=== PATIENT | female | born 1945 | race Caucasian/White ===

== ENCOUNTER → 2018-02-09 | Outpatient (CLI) | payer MEDICARE | END | disposition home or self-care (01) | LOC: RAH 12:06 | PROVIDERS: ATTEND Family Medicine | DX: Z12.31 Encounter for screening mammogram for malignant neoplasm of breast (principal) | CPT/HCPCS: 77067 ==

== ENCOUNTER → 2019-02-10 | Outpatient (CLI) | payer MEDICARE | END | disposition home or self-care (01) | LOC: RAH 12:38 | PROVIDERS: ATTEND Family Medicine | DX: Z12.31 Encounter for screening mammogram for malignant neoplasm of breast (principal) | CPT/HCPCS: 77067 ==

== ENCOUNTER → 2020-03-06 | Outpatient (CLI) | payer MEDICARE | END | disposition home or self-care (01) | LOC: RAH 09:28 | PROVIDERS: ATTEND Family Medicine | DX: Z12.31 Encounter for screening mammogram for malignant neoplasm of breast (principal) | CPT/HCPCS: 77067 ==

== ENCOUNTER → 2022-04-16 | Outpatient (CLI) | payer MEDICARE | END | disposition home or self-care (01) | LOC: RAH 09:55 | PROVIDERS: ATTEND Physician Assistant Medical | DX: Z12.31 Encounter for screening mammogram for malignant neoplasm of breast (principal) | CPT/HCPCS: 77067 ==

== ENCOUNTER → 2023-01-29 | Outpatient (CLI) | payer MEDICARE ==
[~2023-01-29] MED LIST: APIX5TAB PO; EZET10TA13 PO; FURO20TA4 PO; LEVO750T39 PO; METO-409 PO; POTA-187 PO
[2023-01-29 12:11] LABS: BASOPHILS # (AUTO) 0.07 K/uL (0.00-0.20); BASOPHILS % (AUTO) 1.1 % (0.0-5.0); EOSINOPHILS # (AUTO) 0.15 K/uL (0.00-0.70); EOSINOPHILS % (AUTO) 2.3 % (0.0-8.0); HEMATOCRIT 45.7 % (36-48); IMMATURE GRANULOCYTE ABSOLUTE 0.02 K/uL (0-1); LYMPHOCYTES # (AUTO) 3.1 K/uL (1.0-4.8); LYMPHOCYTES % (AUTO) 46.2 % (21.0-51.0); MEAN CORPUSCULAR HEMOGLOBIN 29.3 pg (27.0-33.0); MEAN CORPUSCULAR HGB CONC 31.1 g/dL (32.0-36.0); MEAN CORPUSCULAR VOLUME 94.2 fL (79-99); MONOCYTES # (AUTO) 0.6 K/uL (0.1-1.0); MONOCYTES % (AUTO) 9.2 % (3.0-13.0); NEUTROPHILS # (AUTO) 2.7 K/uL (1.8-7.7); NEUTROPHILS % (AUTO) 40.9 % (40.0-77.0); PLATELET COUNT (AUTO) 222 K/uL (130-400); RED BLOOD CELL COUNT(AUTO) 4.85 MIL/uL (4.00-5.50); RED CELL DISTRIBUTION WIDTH 13.3 % (11.0-15.5); WHITE BLOOD COUNT (AUTO) 6.7 K/uL (4.8-10.8)
[2023-01-29 12:22] LABS: ALBUMIN 3.8 g/dL (3.5-5.0); BILIRUBIN,TOTAL 0.6 mg/dL (0.2-1.0); MAGNESIUM 2.7 mg/dL (1.80-2.40); TOTAL PROTEIN, SERUM 7.8 g/dL (6.0-8.3)
== END | disposition home or self-care (01) ==
LOC: LAB 08:37
PROVIDERS: ATTEND Internal Medicine Cardiovascular Disease
DX: I48.0 Paroxysmal atrial fibrillation (principal); D68.69 Other thrombophilia; Z79.899 Other long term (current) drug therapy
CPT/HCPCS: 36415; 80053; 80061; 83735; 83880; 85025

== ENCOUNTER → 2023-04-30 | Outpatient (CLI) | payer MEDICARE ==
[~2023-04-30] MED LIST changes: -EZET10TA13 PO; +EZET10TA81 PO
== END | disposition home or self-care (01) ==
LOC: RAH 09:57
PROVIDERS: ATTEND Physician Assistant Medical
DX: Z12.31 Encounter for screening mammogram for malignant neoplasm of breast (principal)
CPT/HCPCS: 77067

== ENCOUNTER 2024-02-27 05:48 | Day surgery (SDC) | payer MEDICARE ==
[2024-02-25 14:27] LABS: BASOPHILS # (AUTO) 0.06 K/uL (0.00-0.20); BASOPHILS % (AUTO) 0.9 % (0.0-5.0); EOSINOPHILS # (AUTO) 0.15 K/uL (0.00-0.70); EOSINOPHILS % (AUTO) 2.1 % (0.0-8.0); HEMATOCRIT 40.6 % (36-48); IMMATURE GRANULOCYTE ABSOLUTE 0.02 K/uL (0-1); LYMPHOCYTES # (AUTO) 2.5 K/uL (1.0-4.8); LYMPHOCYTES % (AUTO) 35.2 % (21.0-51.0); MEAN CORPUSCULAR HEMOGLOBIN 29.5 pg (27.0-33.0); MEAN CORPUSCULAR VOLUME 92.1 fL (79-99); MONOCYTES # (AUTO) 0.7 K/uL (0.1-1.0); MONOCYTES % (AUTO) 9.6 % (3.0-13.0); NEUTROPHILS # (AUTO) 3.6 K/uL (1.8-7.7); NEUTROPHILS % (AUTO) 51.9 % (40.0-77.0); PLATELET COUNT (AUTO) 260 K/uL (130-400); RED BLOOD CELL COUNT(AUTO) 4.41 MIL/uL (4.00-5.50); RED CELL DISTRIBUTION WIDTH 14.3 % (11.0-15.5)
[2024-02-25 14:43] LABS: INR 1.02 (0.85-1.15)
[2024-02-25 14:44] LABS: CREATININE 1.3 mg/dL (0.5-1.0); PARTIAL THROMBOPLASTIN TIME 28.6 SEC (26.3-35.5); POTASSIUM 4.7 mmol/L (3.5-5.1)
[2024-02-25 14:54] VITALS: BP 137/67; PULSE 71; RESP 16; TEMP 98.2
[~2024-02-27] VITALS: Ht 167.6 cm; Wt 79.7 kg
[~2024-02-27 05:48] MED LIST changes: +DRON400T7 PO; -FURO20TA4 PO; -LEVO750T39 PO; +LOSA50TA64 PO; +METO-408 PO; -METO-409 PO; -POTA-187 PO
== END 2024-02-27 06:55 | disposition home or self-care (01) ==
LOC: DAH 05:48
PROVIDERS: ATTEND Internal Medicine Cardiovascular Disease
DX: I48.91 Unspecified atrial fibrillation (principal); E78.5 Hyperlipidemia, unspecified; D68.59 Other primary thrombophilia; R53.83 Other fatigue; Z96.642 Presence of left artificial hip joint; I10 Essential (primary) hypertension; Z90.49 Acquired absence of other specified parts of digestive tract; Z90.89 Acquired absence of other organs; Z79.01 Long term (current) use of anticoagulants; Z79.899 Other long term (current) drug therapy; Z53.8 Procedure and treatment not carried out for other reasons
CPT/HCPCS: 36415; 80048; 85025; 85610; 85730; 93005

== ENCOUNTER → 2024-03-29 | Outpatient (CLI) | payer MEDICARE ==
[2024-03-29 09:49] LABS: ALBUMIN 3.5 g/dL (3.5-5.0); BILIRUBIN,TOTAL 0.6 mg/dL (0.2-1.0); POTASSIUM 4.3 mmol/L (3.5-5.1); TOTAL PROTEIN, SERUM 7.2 g/dL (6.0-8.3)
== END | disposition home or self-care (01) ==
LOC: LAB 08:53
PROVIDERS: ATTEND Internal Medicine Cardiovascular Disease
DX: R53.83 Other fatigue (principal); R06.00 Dyspnea, unspecified
CPT/HCPCS: 36415; 80053

== ENCOUNTER → 2024-04-02 | Outpatient (CLI) | payer MEDICARE ==
[~2024-04-02] MED LIST changes: +IOHEXOL 350 MG/ML 100ML INFUS..BTL IV ONE
--- NOTE | 2024-04-02 13:32 | HMCIMG ---
CT CARDIAC ANGIO W/CONT. CCTA HISTORY: Dyspnea COMPARISON: None TECHNIQUE: Multiple sequential axial images of the chest were obtained along with the CT angiogram of the chest study. Patient was given 100 cc of Omnipaque through intravenous route. FINDINGS: There is no evidence of pulmonary nodule or parenchymal disease. No pleural effusion or pericardial effusion is seen. There is no evidence of pneumothorax. There are normal size mediastinal and hilar lymph nodes. The heart is not enlarged. Degenerative changes of the thoracolumbar spine are present. IMPRESSION: 1. No evidence of pulmonary nodule or effusion is seen. Please see CT angiogram report of coronary arteries.
== END | disposition home or self-care (01) ==
LOC: RAH 08:40
PROVIDERS: ATTEND Internal Medicine Cardiovascular Disease
DX: R06.00 Dyspnea, unspecified (principal); R53.83 Other fatigue; M47.815 Spondylosis without myelopathy or radiculopathy, thoracolumbar region
CPT/HCPCS: 75574; Q9967

== ENCOUNTER → 2024-06-01 | Outpatient (CLI) | payer MEDICARE ==
[~2024-06-01] MED LIST changes: -IOHEXOL 350 MG/ML 100ML INFUS..BTL IV ONE
--- NOTE | 2024-06-01 10:30 | HMCIMG ---
MAMMO SCREENING BILATERAL HISTORY: Screening mammogram. COMPARISON: 06/01/2024 TECHNIQUE: Bilateral screening mammogram with CAD was performed with craniocaudal and mediolateral oblique projections. FINDINGS: There are scattered areas of fibroglandular density. There is no evidence of a dominant mass, or suspicious microcalcification. There is no evidence of nipple retraction or skin thickening. IMPRESSION: 1. Stable mammogram. Patient was entered into a reminder system with a target due date for their next mammogram. BI-RADS: CATEGORY 2: BENIGN FINDINGS Recommend monthly self breast exam as well as annual clinical examination. A negative x-ray should not delay biopsy if a dominant or clinically suspicious mass is present, since 8-10% of cancers are not identified by mammography. Dense breasts particularly, may obscure an underlying neoplasm. Some of these may be detected clinically and therefore, clinical examination is an essential part of breast evaluation.
== END | disposition home or self-care (01) ==
LOC: RAH 09:10
PROVIDERS: ATTEND Physician Assistant Medical
DX: Z12.31 Encounter for screening mammogram for malignant neoplasm of breast (principal); R92.323 Mammographic fibroglandular density, bilateral breasts
CPT/HCPCS: 77067

== ENCOUNTER 2025-01-20 07:24 | Day surgery (SDC) | payer MEDICARE ==
[2025-01-18 10:40] LABS: IMMATURE GRANULOCYTE ABSOLUTE 0.02 K/uL (0-1); NUCLEATED RED BLOOD CELLS 0.0 % (0.0-0.19); PLATELET COUNT (AUTO) 228 K/uL (130-400); RED BLOOD CELL COUNT(AUTO) 4.42 MIL/uL (4.00-5.50); RED CELL DISTRIBUTION WIDTH 13.9 % (11.0-15.5); WHITE BLOOD COUNT (AUTO) 8.0 K/uL (4.8-10.8)
[2025-01-18 10:49] LABS: CREATININE 1.0 mg/dL (0.5-1.0); GLOMERULAR FILTR. RATE CALC 57.0 mL/min (>90); GLUCOSE,RANDOM 101.0 mg/dL (70-105); SODIUM SERUM 139.0 mmol/L (136-145); UREA NITROGEN, BLOOD 18.0 mg/dL (7-18)
[2025-01-18 10:52] LABS: INR 1.15 (0.85-1.15)
[2025-01-18 11:29] VITALS: BP 133/63; PULSE 76; RESP 14; TEMP 97.4
--- NOTE | 2025-01-19 13:49 | NUR ---
RE: LABS REPORTED POTASSIUM 5.[address] NAVA, NO NEW ORDERS RECEIVED.
[~2025-01-20] VITALS: Ht 167.6 cm; Wt 79.4 kg
[2025-01-20] VITALS (7 sets, daily range): BP systolic 128–165; BP diastolic 65–77; PULSE 65–92; RESP 14–17; TEMP 97–97.8
[~2025-01-20 07:24] MED LIST changes: +ATOR40TA71 PO; -LOSA50TA64 PO; -METO-408 PO
[2025-01-20] MEDS ORDERED: MIDAZOLAM HCL 1 MG/ML 2ML VIAL IVP ONE (08:30)
--- NOTE | 2025-01-20 08:46 | NUR ---
PT SYNCHRONIZED CARDIOVERTED [address] TAYLOR. PT REMAINS IN ATRIAL FIBRILLATION.
--- NOTE | 2025-01-20 08:47 | NUR ---
PT SYNCHRONIZED CARDIOVERTED 2ND TIME 200 JOULES TOLERATED WELL, NO CHANGE IN HEART RHYTHM PT REMAINS IN ATRIAL FIBRILLATION.
--- NOTE | 2025-01-20 08:49 | NUR ---
PT SYNCHRONIZED CARDIOVERTED A 3RD TIME AT 200 JOULES PT TOLERATED WELL NAD VSS PT CONTINUES TO REMAIN IN ATRIAL FIBRILLATION.
--- NOTE | 2025-01-20 08:51 | NUR ---
DR. TAYLOR SPEAKING WITH SPOUSE ABOUT OTHER TREATMENT OPTIONS AND FOLLOW UP APPOINTMENT FOR ATRIAL FIB. PT AWAKE SPEAKING WITH STAFF
--- NOTE | 2025-01-20 09:02 | PRN ---
CARDIOVERSION WITH CONSCIOUS SEDATION INDICATION: ATRIAL FIBRILLATION TECHNIQUE: Patient was brought to the holding area in a fasting state after informed consent, and AP paddles were applied. Patient was sedated with 2 mg Versed and 100 mcg fentanyl given in divided doses, and she was then cardioverted with a 120 joules biphasic. Distal was unsuccessful, so two additional attempts were made at 200 joules biphasic current. These were also unsuccessful. Patient was recovered without complication. Conclusions: Tolerated conscious sedation, unsuccessful cardioversion attempt. PATTIE TAYLOR MD Jan 20, 2025 09:02
[2025-01-20] MEDS: MIDAZOLAM HCL 1 MG/ML 2ML VIAL IVP ONE (09:17)
--- NOTE | 2025-01-20 09:55 | NUR ---
BOTH PT AND SPOUSE GIVEN VERBAL AND WRITTEN DISCHARGE INSTRUCTIONS. IV REMOVED SITE ASYMPTOMATIC. PT TAKEN OUT VIA WHEELCHAIR. SPOUSE DRIVING.
--- NOTE | 2025-01-20 10:05 | EKG ---
[facility] Test Date: 2025-01-20 Test Time: 07:33:31 Pat Name: MICAELA TILLEY Department: [facility] Room: [facility] 11 Gender: F Heel Splitter: [id number] : 1945 Requested By: PATTIE TAYLOR Order Number: [id number] Reading MD: Ant Carranza Measurements Intervals [place] Rate: 79 P: 0 NH: 0 QRS: 23 QRSD: 88 T: 36 QT: 395 QTc: 454 Interpretive Statements Atrial fibrillation Compared to ECG 02/27/2024 06:17:37 Sinus bradycardia no longer present Electronically Signed On 01-20-2025 13:39:58 CDT by Ant Carranza Please click the below link to view image of tracing.
== END 2025-01-20 10:00 | disposition home or self-care (01) ==
LOC: DAH 07:24
PROVIDERS: ATTEND Internal Medicine Cardiovascular Disease
DX: I48.91 Unspecified atrial fibrillation (principal); I25.10 Atherosclerotic heart disease of native coronary artery without angina pectoris; E78.5 Hyperlipidemia, unspecified; I34.0 Nonrheumatic mitral (valve) insufficiency; Z90.49 Acquired absence of other specified parts of digestive tract; Z82.49 Family history of ischemic heart disease and other diseases of the circulatory system; Z79.899 Other long term (current) drug therapy; Z98.890 Other specified postprocedural states
CPT/HCPCS: 80048; 85025; 85610; 85730; 36415; 93005; 99152; 92960; A4223 ×3; J3010; J2250; A4615; A4215; A4657; A4222; A4221; A4663; A4216; A4606; G0500

== ENCOUNTER 2025-03-29 05:52 | Observation (INO) | payer MEDICARE ==
[2025-03-25 10:46] LABS: IMMATURE GRANULOCYTE ABSOLUTE 0.02 K/uL (0-1); NUCLEATED RED BLOOD CELLS 0.0 % (0.0-0.19); PLATELET COUNT (AUTO) 214 K/uL (130-400); RED BLOOD CELL COUNT(AUTO) 4.71 MIL/uL (4.00-5.50); RED CELL DISTRIBUTION WIDTH 13.0 % (11.0-15.5); WHITE BLOOD COUNT (AUTO) 8.4 K/uL (4.8-10.8)
--- NOTE | 2025-03-25 10:54 | EKG ---
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
[2025-03-25 10:55] LABS: CREATININE 1.0 mg/dL (0.5-1.0); GLOMERULAR FILTR. RATE CALC 57.0 mL/min (>90); GLUCOSE,RANDOM 93.0 mg/dL (70-105); INR 1.19 (0.85-1.15); SODIUM SERUM 139.0 mmol/L (136-145); UREA NITROGEN, BLOOD 22.0 mg/dL (7-18)
[2025-03-25 11:34] VITALS: BP 142/68; PULSE 70; RESP 18; TEMP 97.3
[~2025-03-29] VITALS: Ht 167.6 cm; Wt 76.7 kg
[2025-03-29] VITALS (32 sets, daily range): BP systolic 100–161; BP diastolic 45–85; PULSE 55–101; RESP 12–22; TEMP 97.3–98.4; O2SAT 96
[2025-03-29] MEDS ORDERED: MIDAZOLAM HCL 1 MG/ML 2ML VIAL ONE (06:57)
[2025-03-29] MEDS ORDERED: LIDOCAINE HCL 400MG/20ML VIAL ONE (07:42)
[2025-03-29] MEDS ORDERED: SODIUM BICARB 50MEQ 50ML VIAL 50 ML ONE (07:43)
[2025-03-29] MEDS ORDERED: HEParin-NS 1,000 UNIT/500 ML 1,500 ML IV ONE (07:43)
[2025-03-29] MEDS ORDERED: NEOSTIGMINE METHYLSULFATE 1MG/ML IV ONE (10:44)
[2025-03-29] MEDS ORDERED: GLYCOPYRROLATE 0.2 MG/ML 5 ML VIAL ONE (10:44)
[2025-03-29] MEDS ORDERED: PANT40TA55 PO (11:10)
[2025-03-29] MEDS ORDERED: SUCR1TAB2 PO (11:10)
--- NOTE | 2025-03-29 14:49 | NUR ---
Moderate amount os red sangous fluid out when she coughed hard. Pressure applied for 20 minutes. Applied dSTAT and pressure dressing. Site soft without bruising or hematoma.
[2025-03-29] MEDS: SUCRALFATE 1 GM/10 ML PO ONE (15:00)
--- NOTE | 2025-03-29 15:38 | NUR ---
Patient rebleed. Applied manuall pressure x 20 minutes reapplied DSTAT. Notified Dr Childs and laborer wood preserving plant Nurse, Skip. He stated "I will update Naz and apply pressure dressing IR Chhaya LUKE here applying surgicell and pressure dressing. Patient tolerating without issue.
--- NOTE | 2025-03-29 16:30 | NUR ---
A total of 3 rounds of 20 minute manual pressure and [address] Childs and rn lab Nurse, Chhaya FERGUSON applied Surgicell and pressure dressing at this time. No further bleeding evident. No sign of bruising or hematoma evident. Pedal pulses faint but intact. Dr Childs wrote orders for PCCU Observation overnight. Gray Leal Director aware at bedside. and Patient stated relief to be staying overnight.
--- NOTE | 2025-03-29 16:50 | NUR ---
Pending transfer to PCCU room 223.
[2025-03-29] MEDS: DRONEDARONE HYDROCHLORIDE 400 MG TABLET PO ONE (18:30)
--- NOTE | 2025-03-29 18:45 | NUR ---
Patient took her home meds Eliquis and Multaq without Nurse knowledge at 18:30. Advised her to allow Nursing Staff to give her medications. Right Femoral site clean, dry and intact. No sign of bleeding, bruising or hematoma. Instructed Patient of precautions and expectations until discharge tomorrow. She voiced understanding. Reported in full to PHYLLIS Mojica
--- NOTE | 2025-03-29 19:00 | NUR ---
Transported to room 223 on transport monitor.
--- NOTE | 2025-03-29 19:26 | NUR ---
Small amount of oozing to Femoral site once in room 223. Reapplied pressure dressing by Gray Mayorga RN Director. Dressing clean and dry. Gave report to bedside RNJesús.
[2025-03-30] MEDS: HYDROcodone/APAP 5/325 1 TAB TABLET PO ONE (00:42)
[2025-03-30 03:50] VITALS: BP 129/67; PULSE 83; RESP 22; TEMP 98.3
[2025-03-30 07:00] VITALS: BP 116/56; PULSE 91; RESP 20; TEMP 98.1
[2025-03-30 08:00] VITALS: O2SAT 99
--- NOTE | 2025-03-30 09:50 | NUR ---
DISCHARGE INSTRUCTIONS WERE GIVEN TO THIS PATIENT AND SPOUSE AT BEDSIDE. EDUCATION WAS PROVIDED ON NEW MEDICATIONS AND POST CATH CARE TO RIGHT GROIN SITE. ALL QUESTIONS WERE ANSWERED. ALL BELONGINGS WERE ACCOUNTED FOR. TELE PACK WAS REMOVED AND RETURNED. PIV TO LEFT ANTECUBITAL WAS REMOVED WITH CATHETER INTACT. DRY DRESSING WAS APPLIED ONCE BLEEDING STOPPED. PATIENT WAS TAKEN DOWN TO PRIVATE VEHICLE VIA WHEEL CHAIR.
== END 2025-03-30 09:48 | disposition home or self-care (01) ==
LOC: DAH 05:52 → DAHIP 05:53 → 2DH 19:49
PROVIDERS: ADMIT Internal Medicine Cardiovascular Disease; ATTEND Internal Medicine Cardiovascular Disease
DX: I48.91 Unspecified atrial fibrillation (principal); I12.0 Hypertensive chronic kidney disease with stage 5 chronic kidney disease or end stage renal disease; N18.6 End stage renal disease; E78.5 Hyperlipidemia, unspecified; I25.2 Old myocardial infarction; Z79.899 Other long term (current) drug therapy; Z98.890 Other specified postprocedural states
CPT/HCPCS: 80048; 85025; 85610; 85730; 36415 ×2; 93005; 93656; 93657 ×2; 84132; 85347 ×4; C1894 ×3; C1732 ×3; A4649 ×2; C1760 ×3; C1766; G0378 ×17; J3010 ×3; J3490 ×4; J2720; J1644 ×3; J2250; J2704; J2405; J2710; J2371; A4215; A4223 ×3; A6402; A4335; A4222; A4221; A4663; A4216; A4606; 92960